=== PATIENT | male | born 1960 | race Two or more races ===

== ENCOUNTER 2023-10-31 11:40 | Inpatient (IN) | payer MEDICAID, OTHER ==
[~2023-10-31] VITALS: Ht 177.8 cm; Wt 83.2 kg
[~2023-10-31 11:40] MED LIST: ASPI81TA39 PO; CARV6 PO; CLOP75TA60 PO; DIVA-111 PO; GABA-531 PO; INSLAN SQ; INSU100C6 SQ; LISI-893 PO; LORA-1000 PO; METF-445 PO; MULT-1259 PO; NITR0.4T SL; NITR0.4T52 SL; PRAV40TA4 PO; QUET200T PO; ZOLP-162 PO; [UNRECOGNIZED DRUG - CODE]; [UNRECOGNIZED DRUG - CODE]
[2023-10-31 11:52] VITALS: O2SAT 99
[2023-10-31 12:19] LABS: COVID AG,FIA SOURCE NASAL SWAB
[2023-10-31 12:45] LABS: SARS-COV2 (COVID) ANTIGEN,FIA Negative (Negative)
[2023-10-31 13:02] LABS: BASOPHILS % (AUTO) 0.5 % (0.0-2.0); EOSINOPHILS % (AUTO) 2.4 % (1.0-6.0); HEMATOCRIT 36.9 % (41-53); HEMOGLOBIN 12.2 g/dL (13.5-17.5); LYMPHOCYTES # (AUTO) 2.3 K/uL (1.0-4.8); LYMPHOCYTES % (AUTO) 40.2 % (22.0-44.0); MEAN CORPUSCULAR HEMOGLOBIN 29.6 pg (26.0-34.0); MEAN CORPUSCULAR HGB CONC 33.1 G/dL (31.0-37.0); MEAN CORPUSCULAR VOLUME 90 fL (80-100); MONOCYTES # (AUTO) 0.5 K/uL (0.1-1.0); MONOCYTES % (AUTO) 9.6 % (2.0-9.0); NEUTROPHILS # (AUTO) 2.7 K/uL (1.8-7.7); NEUTROPHILS % (AUTO) 47.3 % (40.0-70.0); PLATELET COUNT (AUTO) 252 K/uL (150-450); RED BLOOD CELL COUNT(AUTO) 4.12 MIL/uL (4.50-5.90); RED CELL DISTRIBUTION WIDTH 13.7 % (11.5-14.5); WHITE BLOOD COUNT (AUTO) 5.7 K/uL (4.5-11.0)
[2023-10-31 13:10] LABS: ALCOHOL, URINE DRUG SCREEN NEGATIVE (NEGATIVE); AMPHET/METH SCREEN,URINE POSITIVE (NEGATIVE); BARBITURATE SCREEN, URINE NEGATIVE (NEGATIVE); BENZODIAZEPINES SCREEN,URINE NEGATIVE (NEGATIVE); CANNABINOID SCREEN,URINE POSITIVE (NEGATIVE); COCAINE SCREEN,URINE NEGATIVE (NEGATIVE); METHADONE SCREEN, URINE NEGATIVE (NEGATIVE); OPIATE SCREEN,URINE NEGATIVE (NEGATIVE); PHENCYCLIDINE SCREEN,URINE NEGATIVE (NEGATIVE)
[2023-10-31 13:12] LABS: PH,URINE DRUG SCREEN 6.5 (5.0-8.0)
[2023-10-31 13:17] LABS: ANION GAP 8 mmol/L (8-16); CALCIUM, TOTAL 8.7 mg/dL (8.8-10.5); CARBON DIOXIDE 26 mmol/L (22-29); CHLORIDE 100 mmol/L (98-107); CREATININE 1.35 mg/dL (0.60-1.30); GLOMERULAR FILTR. RATE CALC 54 mL/min (>60); GLUCOSE,RANDOM 207 mg/dL (70-110); POTASSIUM 4.4 mmol/L (3.5-5.1); SODIUM SERUM 134 mmol/L (136-145); UREA NITROGEN, BLOOD 27 mg/dL (7-18)
[2023-10-31 13:20] LABS: ALCOHOL, BLOOD (SERUM) < 3 mg/dL (0-10)
[2023-10-31 17:35] VITALS: BP 119/74; PULSE 86; RESP 18; TEMP 98.2
[2023-10-31] MEDS ORDERED: NITROGLYCERIN 0.4 MG SUBLINGUAL TABLET #25 SL PRN (18:30)
[2023-10-31] MEDS ORDERED: GLUCAGON,HUMAN RECOMBINANT 1 MG VIAL IM PRN (18:30)
[2023-10-31] MEDS ORDERED: PNEUMOCOCCAL VACCINE POLYVALENT 0.5 ML SYRINGE [PPSV23] IM. ONE (19:15)
[2023-10-31 20:21] LABS: GLUCOMETER DEV NAME(LOC) BV3N.2; GLUCOSE,POINT OF CARE 291 MG/DL (70-110)
[2023-10-31] MEDS: ZOLPIDEM TARTRATE 10 MG TABLET PO PRN (20:32)
[2023-10-31] MEDS: INSULIN LISPRO 100 UNITS/ML SQ PRN (20:38)
[2023-10-31 20:51] VITALS: BP 119/74; PULSE 86; RESP 18; TEMP 98.2; O2SAT 100
[2023-11-01 06:36] LABS: GLUCOMETER DEV NAME(LOC) BV3N.2; GLUCOSE,POINT OF CARE 270 MG/DL (70-110)
[2023-11-01] MEDS ORDERED: MAGNESIUM HYDROXIDE SUSPENSION 30 ML UDCUP PO PRN (08:00)
[2023-11-01] MEDS ORDERED: NICOTINE 14 MG/24 HOUR PATCH TD PRN (08:00)
[2023-11-01] MEDS ORDERED: ONDANSETRON 4 MG TABLET PO PRN (08:00)
[2023-11-01] MEDS ORDERED: LOPERAMIDE HCL 2 MG CAPSULE PO PRN (08:00)
[2023-11-01] MEDS ORDERED: CloNIDine HCL 0.1 MG TABLET PO PRN (08:00)
[2023-11-01] MEDS ORDERED: MAG HYDROX/ALUMINUM HYD/SIMETH ES 30 ML SUSPENSION UDCUP PO PRN (08:00)
[2023-11-01] MEDS ORDERED: DOCUSATE SODIUM 100 MG CAPSULE PO PRN (08:00)
[2023-11-01] MEDS ORDERED: ALBUTEROL SULFATE HFA 90 MCG/PUFF 8 GM INHALER IH PRN (08:00)
[2023-11-01] MEDS ORDERED: PETROLATUM,WHITE 28 GM JELLY TP PRN (08:00)
[2023-11-01 08:26] VITALS: BP 114/60; PULSE 84; RESP 17; TEMP 98; O2SAT 98
[2023-11-01] MEDS: PRAVASTATIN SODIUM 40 MG TABLET PO SCH (08:43)
[2023-11-01] MEDS: GABAPENTIN 300 MG CAPSULE PO SCH (08:43)
[2023-11-01] MEDS: LISINOPRIL 10 MG TABLET PO SCH (08:43)
[2023-11-01] MEDS: CARVEDILOL 6.25 MG TABLET PO SCH (08:43)
[2023-11-01] MEDS: ASPIRIN 81 MG CHEWABLE TABLET PO SCH (08:43)
[2023-11-01] MEDS: CLOPIDOGREL BISULFATE 75 MG TABLET PO SCH (08:43)
[2023-11-01] MEDS: NICOTINE 14 MG/24 HOUR PATCH TD SCH (08:44)
[2023-11-01] MEDS: LORazepam 2 MG TABLET PO PRN (08:44)
[2023-11-01 09:44] LABS: APPEARANCE,URINE CLEAR (CLEAR); BILIRUBIN,URINE NEGATIVE (NEGATIVE); COLOR,URINE LIGHT YELLOW (YELLOW); GLUCOSE, URINE (UA) >=1000 mg/dL (NEGATIVE); KETONES,URINE NEGATIVE (NEGATIVE); LEUKOCYTE ESTERASE ,URINE NEGATIVE (NEGATIVE); NITRATE,URINE NEGATIVE (NEGATIVE); OCCULT BLOOD,URINE NEGATIVE (NEGATIVE); PH,URINE 6.5 (5.0-8.0); PROTEIN,URINE 30-70 mg/dL (NEGATIVE); SPECIFIC GRAVITIY, URINE 1.014 (1.003-1.030); UROBILINOGEN,URINE <=1.0 mg/dL (<=1.0)
[2023-11-01 09:59] LABS: BACTERIA,URINE None Seen /HPF (None Seen); RBC,URINE None Seen /HPF (0-2); SQUAMOUS EPITHELIAL CELL,UR None Seen /LPF (None Seen); WBC,URINE None Seen /HPF (0-5)
[2023-11-01] MEDS: DIVALPROEX SODIUM 250 MG DR TABLET PO SCH (10:58)
[2023-11-01] MEDS: HALOPERIDOL 5 MG TABLET PO PRN (16:37)
[2023-11-01 16:41] LABS: GLUCOMETER DEV NAME(LOC) BV3N.2; GLUCOSE,POINT OF CARE 279 MG/DL (70-110)
[2023-11-01] MEDS: QUEtiapine FUMARATE 200 MG TABLET PO SCH (20:06)
[2023-11-01 20:18] VITALS: BP 111/70; PULSE 82; RESP 17; TEMP 98; O2SAT 98
[2023-11-02 06:51] LABS: GLUCOMETER DEV NAME(LOC) BV3N.2; GLUCOSE,POINT OF CARE 363 MG/DL (70-110)
[2023-11-02 08:23] VITALS: BP 124/64; PULSE 73; RESP 16; TEMP 97.3; O2SAT 98
[2023-11-02 08:24] LABS: CHOL/HDL RATIO 4.4 (4.2-7.3); THYROID STIMULATING HORMONE 1.43 uIU/mL (0.36-3.74)
[2023-11-02 08:38] LABS: HEMOGLOBIN A1C 10.1 % (3.8-5.6)
[2023-11-02 11:55] LABS: GLUCOMETER DEV NAME(LOC) BV3N.2; GLUCOSE,POINT OF CARE 363 MG/DL (70-110)
[2023-11-02 16:46] LABS: GLUCOMETER DEV NAME(LOC) BV3N.2; GLUCOSE,POINT OF CARE 146 MG/DL (70-110)
[2023-11-02 20:44] VITALS: BP 97/54; PULSE 93; RESP 18; TEMP 97.5; O2SAT 100
[2023-11-02 21:20] LABS: GLUCOMETER DEV NAME(LOC) BV3N.2; GLUCOSE,POINT OF CARE 353 MG/DL (70-110)
[2023-11-03 06:36] LABS: GLUCOMETER DEV NAME(LOC) BV3N.2; GLUCOSE,POINT OF CARE 409 MG/DL (70-110)
[2023-11-03 08:22] VITALS: BP 128/76; PULSE 108; RESP 17; TEMP 97.7; O2SAT 98
[2023-11-03 17:00] LABS: GLUCOMETER DEV NAME(LOC) BV3N.2; GLUCOSE,POINT OF CARE 477 MG/DL (70-110)
[2023-11-03] MEDS ORDERED: DIVA-112 PO (17:58)
[2023-11-03] MEDS ORDERED: AMLO5TAB66 PO (17:58)
[2023-11-03] MEDS ORDERED: CARV12.530 PO (17:58)
[2023-11-03] MEDS ORDERED: LORA10TA7 PO (17:58)
[2023-11-03] MEDS ORDERED: MONT-40 PO (17:58)
[2023-11-03] MEDS ORDERED: FLUT16SP NASAL (17:58)
[2023-11-03] MEDS ORDERED: LISI20TA24 PO (17:58)
[2023-11-03] MEDS ORDERED: OMEP20CA12 PO (17:58)
[2023-11-03] MEDS ORDERED: INSU100I26 SQ (17:58)
[2023-11-03] MEDS ORDERED: FINE10TA PO (17:58)
[2023-11-03] MEDS ORDERED: ASPI-1444 PO (17:58)
[2023-11-03] MEDS ORDERED: QUET100T34 PO (17:58)
[2023-11-03] MEDS ORDERED: DULA0.75 SQ (17:58)
[2023-11-03] MEDS ORDERED: FERR325T23 PO (17:58)
[2023-11-03] MEDS ORDERED: CLOP75TA32 PO (17:58)
[2023-11-03] MEDS ORDERED: GABA-1181 PO (17:58)
[2023-11-03] MEDS: INSULIN LISPRO 100 UNITS/ML SQ ONE (18:47)
[2023-11-03 20:50] VITALS: BP 102/68; PULSE 104; RESP 18; TEMP 97.8; O2SAT 98
[2023-11-03 21:01] LABS: GLUCOMETER DEV NAME(LOC) BV3N.2; GLUCOSE,POINT OF CARE 338 MG/DL (70-110)
[2023-11-04] MEDS: GlipiZIDE 5 MG TABLET PO SCH (06:47)
[2023-11-04 07:05] LABS: GLUCOMETER DEV NAME(LOC) BV3N.2; GLUCOSE,POINT OF CARE 302 MG/DL (70-110)
[2023-11-04] MEDS: INSULIN LISPRO 100 UNITS/ML SQ ONE (12:07)
[2023-11-04 12:25] LABS: GLUCOMETER DEV NAME(LOC) BV3N.2; GLUCOSE,POINT OF CARE 430 MG/DL (70-110)
[2023-11-04 14:48] VITALS: BP 132/68; PULSE 100; RESP 20; TEMP 98.2; O2SAT 96
[2023-11-04 14:58] VITALS: BP 140/88; PULSE 99; RESP 19; TEMP 97.5; O2SAT 99
[2023-11-04 16:10] LABS: GLUCOMETER DEV NAME(LOC) BV3N.2; GLUCOSE,POINT OF CARE 265 MG/DL (70-110)
[2023-11-04 20:19] VITALS: BP 127/66; PULSE 92; RESP 18; TEMP 97.7; O2SAT 100
[2023-11-05 06:15] LABS: GLUCOMETER DEV NAME(LOC) BV3N.2; GLUCOSE,POINT OF CARE 259 MG/DL (70-110)
[2023-11-05 06:15] LABS: GLUCOMETER DEV NAME(LOC) BV3N.2; GLUCOSE,POINT OF CARE 318 MG/DL (70-110)
[2023-11-05 08:35] VITALS: BP 123/69; PULSE 100; RESP 17; TEMP 97.3; O2SAT 98
[2023-11-05 08:43] LABS: CALCIUM, TOTAL 8.5 mg/dL (8.8-10.5); CREATININE 1.25 mg/dL (0.60-1.30); POTASSIUM 4.7 mmol/L (3.5-5.1)
[2023-11-05] MEDS: DiphenhydrAMINE HCL 50 MG/ML VIAL IM ONE (10:26)
[2023-11-05] MEDS: HALOPERIDOL LACTATE 5 MG/ML VIAL IM ONE (10:26)
[2023-11-05] MEDS: LORazepam 2 MG/ML VIAL IM ONE (10:26)
[2023-11-05 11:26] VITALS: BP 118/70; PULSE 86; RESP 17; TEMP 97.8; O2SAT 99
[2023-11-05 12:20] LABS: GLUCOMETER DEV NAME(LOC) BV3N.2; GLUCOSE,POINT OF CARE 335 MG/DL (70-110)
[2023-11-05 16:32] LABS: GLUCOMETER DEV NAME(LOC) BV3N.2; GLUCOSE,POINT OF CARE 469 MG/DL (70-110)
[2023-11-05] MEDS: INSULIN LISPRO 100 UNITS/ML SQ ONE (16:32)
[2023-11-05 20:30] VITALS: BP 129/81; PULSE 87; RESP 18; TEMP 97.7
[2023-11-05 20:45] LABS: GLUCOMETER DEV NAME(LOC) BV3N.2; GLUCOSE,POINT OF CARE 398 MG/DL (70-110)
[2023-11-05] MEDS: SitaGLIPtin PHOSPHATE 50 MG TABLET PO SCH (21:52)
[2023-11-06 07:01] LABS: GLUCOMETER DEV NAME(LOC) BV3N.2; GLUCOSE,POINT OF CARE 252 MG/DL (70-110)
[2023-11-06 08:57] VITALS: BP 148/76; PULSE 81; RESP 18; TEMP 98.2; O2SAT 99
[2023-11-06 13:51] LABS: GLUCOMETER DEV NAME(LOC) BV3N.2; GLUCOSE,POINT OF CARE 309 MG/DL (70-110)
[2023-11-06] MEDS: DiphenhydrAMINE HCL 50 MG/ML VIAL IM ONE (16:37)
[2023-11-06] MEDS: LORazepam 2 MG/ML VIAL IM ONE (16:38)
[2023-11-06] MEDS: HALOPERIDOL LACTATE 5 MG/ML VIAL IM ONE (16:39)
[2023-11-06] MEDS: QUEtiapine FUMARATE 200 MG TABLET PO SCH (21:01)
[2023-11-07 06:36] LABS: GLUCOMETER DEV NAME(LOC) BV3N.2; GLUCOSE,POINT OF CARE 374 MG/DL (70-110)
[2023-11-07 08:58] VITALS: BP 125/77; PULSE 90; RESP 18; TEMP 97.7; O2SAT 98
[2023-11-07] MEDS: INSULIN LISPRO 100 UNITS/ML SQ ONE ×2 (11:52→16:26)
[2023-11-07 13:27] LABS: GLUCOMETER DEV NAME(LOC) BV3N.2; GLUCOSE,POINT OF CARE 437 MG/DL (70-110)
[2023-11-07 16:46] LABS: GLUCOMETER DEV NAME(LOC) BV3N.2; GLUCOSE,POINT OF CARE 415 MG/DL (70-110)
[2023-11-07 17:45] LABS: GLUCOMETER DEV NAME(LOC) BV3N.2; GLUCOSE,POINT OF CARE 449 MG/DL (70-110)
[2023-11-07] MEDS: INSULIN GLARGINE,HUM.REC.ANLOG 100 UNITS/ML SQ SCH (21:20)
[2023-11-07 22:30] LABS: GLUCOMETER DEV NAME(LOC) BV3N.2; GLUCOSE,POINT OF CARE 254 MG/DL (70-110)
[2023-11-08 00:10] VITALS: RESP 18
[2023-11-08 06:26] LABS: GLUCOMETER DEV NAME(LOC) BV3N.2; GLUCOSE,POINT OF CARE 349 MG/DL (70-110)
[2023-11-08 08:31] VITALS: BP 113/64; PULSE 96; RESP 16; TEMP 97.8; O2SAT 98
[2023-11-08] MEDS: INSULIN LISPRO 100 UNITS/ML SQ PRN (11:30)
[2023-11-08] MEDS: INSULIN GLARGINE,HUM.REC.ANLOG 100 UNITS/ML SQ SCH (16:33)
[2023-11-08] MEDS ORDERED: INSULIN GLARGINE,HUM.REC.ANLOG 100 UNITS/ML SQ SCH (17:00)
[2023-11-08 20:30] VITALS: BP 136/92; PULSE 99; RESP 18; TEMP 97; O2SAT 97
[2023-11-08 20:41] LABS: GLUCOMETER DEV NAME(LOC) BV3N.2; GLUCOSE,POINT OF CARE 269 MG/DL (70-110)
[2023-11-09 08:33] VITALS: RESP 17
[2023-11-09 10:31] LABS: GLUCOMETER DEV NAME(LOC) BV3N.2; GLUCOSE,POINT OF CARE 391 MG/DL (70-110)
[2023-11-09 11:40] LABS: GLUCOMETER DEV NAME(LOC) BV3N.2; GLUCOSE,POINT OF CARE 381 MG/DL (70-110)
[2023-11-09 17:15] LABS: GLUCOMETER DEV NAME(LOC) BV3N.2; GLUCOSE,POINT OF CARE 322 MG/DL (70-110)
[2023-11-09 20:35] VITALS: BP 130/80; PULSE 93; RESP 18; TEMP 97.5; O2SAT 100
[2023-11-09 20:45] LABS: GLUCOMETER DEV NAME(LOC) BV3N.2; GLUCOSE,POINT OF CARE 291 MG/DL (70-110)
[2023-11-10] MEDS: INSULIN GLARGINE,HUM.REC.ANLOG 100 UNITS/ML SQ SCH (09:00)
[2023-11-10] MEDS: INSULIN LISPRO 100 UNITS/ML SQ ONE (12:38)
[2023-11-10 16:45] LABS: GLUCOMETER DEV NAME(LOC) BV3N.2; GLUCOSE,POINT OF CARE 511 MG/DL (70-110)
[2023-11-10 16:45] LABS: GLUCOMETER DEV NAME(LOC) BV3N.2; GLUCOSE,POINT OF CARE 305 MG/DL (70-110)
[2023-11-10 20:23] VITALS: BP 107/64; PULSE 108; RESP 19; TEMP 96.9; O2SAT 99
[2023-11-10] MEDS: DIVALPROEX SODIUM 250 MG DR TABLET PO SCH (20:32)
[2023-11-10 21:05] LABS: GLUCOMETER DEV NAME(LOC) BV3N.2; GLUCOSE,POINT OF CARE 228 MG/DL (70-110)
[2023-11-11 06:11] LABS: GLUCOMETER DEV NAME(LOC) BV3N.2; GLUCOSE,POINT OF CARE 253 MG/DL (70-110)
[2023-11-11 08:36] VITALS: BP 140/86; PULSE 87; RESP 15; TEMP 98.3; O2SAT 98
[2023-11-11 11:55] LABS: GLUCOMETER DEV NAME(LOC) BV3N.2; GLUCOSE,POINT OF CARE 331 MG/DL (70-110)
[2023-11-11 17:05] LABS: GLUCOMETER DEV NAME(LOC) BV3N.2; GLUCOSE,POINT OF CARE 197 MG/DL (70-110)
[2023-11-11 20:51] VITALS: BP 96/64; PULSE 88; RESP 18; TEMP 97.3; O2SAT 95
[2023-11-11 21:31] LABS: GLUCOMETER DEV NAME(LOC) BV3N.2; GLUCOSE,POINT OF CARE 273 MG/DL (70-110)
[2023-11-12 06:26] LABS: GLUCOMETER DEV NAME(LOC) BV3N.2; GLUCOSE,POINT OF CARE 200 MG/DL (70-110)
[2023-11-12 08:29] VITALS: BP 114/73; PULSE 95; RESP 18; TEMP 97.8; O2SAT 98
[2023-11-12] MEDS: GuaiFENesin/D-METHORPHAN [SUGAR-FREE] 200-20MG/10 ML SYRUP UDCUP PO PRN (08:40)
[2023-11-12 12:01] LABS: GLUCOMETER DEV NAME(LOC) BV3N.2; GLUCOSE,POINT OF CARE 313 MG/DL (70-110)
[2023-11-12 16:55] LABS: GLUCOMETER DEV NAME(LOC) BV3N.2; GLUCOSE,POINT OF CARE 319 MG/DL (70-110)
[2023-11-12 20:32] VITALS: BP 100/59; PULSE 87; RESP 18; TEMP 97.5; O2SAT 99
[2023-11-13 06:21] LABS: GLUCOMETER DEV NAME(LOC) BV3N.2; GLUCOSE,POINT OF CARE 248 MG/DL (70-110)
[2023-11-13 08:26] VITALS: BP 133/85; PULSE 86; RESP 16; TEMP 97.8; O2SAT 97
[2023-11-13] MEDS: INSULIN GLARGINE,HUM.REC.ANLOG 100 UNITS/ML SQ SCH (09:02)
[2023-11-13 11:55] LABS: GLUCOMETER DEV NAME(LOC) BV3N.2; GLUCOSE,POINT OF CARE 333 MG/DL (70-110)
[2023-11-13 18:00] LABS: GLUCOMETER DEV NAME(LOC) BV3N.2; GLUCOSE,POINT OF CARE 194 MG/DL (70-110)
[2023-11-13 20:19] VITALS: BP 119/68; PULSE 76; RESP 18; TEMP 98.4; O2SAT 97
[2023-11-13 20:35] LABS: GLUCOMETER DEV NAME(LOC) BV3N.2; GLUCOSE,POINT OF CARE 256 MG/DL (70-110)
[2023-11-14 06:50] LABS: GLUCOMETER DEV NAME(LOC) BV3N.2; GLUCOSE,POINT OF CARE 165 MG/DL (70-110)
[2023-11-14 08:15] VITALS: BP 150/89; PULSE 94; RESP 18; TEMP 97.8; O2SAT 99
[2023-11-14 11:56] LABS: GLUCOMETER DEV NAME(LOC) BV3N.2; GLUCOSE,POINT OF CARE 280 MG/DL (70-110)
[2023-11-14 17:00] LABS: GLUCOMETER DEV NAME(LOC) BV3N.2; GLUCOSE,POINT OF CARE 364 MG/DL (70-110)
[2023-11-14 20:56] LABS: GLUCOMETER DEV NAME(LOC) BV3N.2; GLUCOSE,POINT OF CARE 240 MG/DL (70-110)
[2023-11-14 20:59] VITALS: BP 142/88; PULSE 98; RESP 18; TEMP 99; O2SAT 99
[2023-11-15 06:15] LABS: GLUCOMETER DEV NAME(LOC) BV3N.2; GLUCOSE,POINT OF CARE 201 MG/DL (70-110)
[2023-11-15 08:23] VITALS: BP 121/81; PULSE 96; RESP 16; TEMP 97.3; O2SAT 95
[2023-11-15 11:36] LABS: GLUCOMETER DEV NAME(LOC) BV3N.2; GLUCOSE,POINT OF CARE 251 MG/DL (70-110)
[2023-11-15 17:20] LABS: GLUCOMETER DEV NAME(LOC) BV3N.2; GLUCOSE,POINT OF CARE 272 MG/DL (70-110)
[2023-11-15 20:36] LABS: GLUCOMETER DEV NAME(LOC) BV3N.2; GLUCOSE,POINT OF CARE 306 MG/DL (70-110)
[2023-11-15 20:57] VITALS: RESP 18
[2023-11-16 06:46] LABS: GLUCOMETER DEV NAME(LOC) BV3N.2; GLUCOSE,POINT OF CARE 209 MG/DL (70-110)
[2023-11-16 08:10] VITALS: RESP 18
[2023-11-16 08:28] VITALS: BP 136/81; PULSE 86; RESP 18; TEMP 98.1; O2SAT 98
[2023-11-16 11:50] LABS: GLUCOMETER DEV NAME(LOC) BV3N.2; GLUCOSE,POINT OF CARE 248 MG/DL (70-110)
[2023-11-16 16:46] LABS: GLUCOMETER DEV NAME(LOC) BV3N.2; GLUCOSE,POINT OF CARE 207 MG/DL (70-110)
[2023-11-16 20:16] VITALS: BP 125/67; PULSE 100; RESP 18; TEMP 97.5; O2SAT 98
[2023-11-16 20:30] LABS: GLUCOMETER DEV NAME(LOC) BV3N.2; GLUCOSE,POINT OF CARE 204 MG/DL (70-110)
[2023-11-17 06:25] LABS: GLUCOMETER DEV NAME(LOC) BV3N.2; GLUCOSE,POINT OF CARE 153 MG/DL (70-110)
[2023-11-17] MEDS ORDERED: ZOLPIDEM TARTRATE 10 MG TABLET PO PRN (07:00)
[2023-11-17 08:27] VITALS: BP 138/84; PULSE 90; RESP 18; TEMP 98; O2SAT 97
[2023-11-17 12:00] LABS: GLUCOMETER DEV NAME(LOC) BV3N.2; GLUCOSE,POINT OF CARE 216 MG/DL (70-110)
[2023-11-17] MEDS: LORazepam 2 MG TABLET PO PRN (13:39)
[2023-11-17 16:40] LABS: GLUCOMETER DEV NAME(LOC) BV3N.2; GLUCOSE,POINT OF CARE 145 MG/DL (70-110)
[2023-11-18] VITALS (9 sets, daily range): BP systolic 76–152; BP diastolic 48–73; PULSE 84–105; RESP 16–18; TEMP 97.3–97.7; O2SAT 91–100
[2023-11-18 06:26] LABS: GLUCOMETER DEV NAME(LOC) BV3N.2; GLUCOSE,POINT OF CARE 193 MG/DL (70-110)
[2023-11-18 12:06] LABS: GLUCOMETER DEV NAME(LOC) BV3N.2; GLUCOSE,POINT OF CARE 360 MG/DL (70-110)
[2023-11-18 23:36] LABS: GLUCOMETER DEV NAME(LOC) ERT.6; GLUCOSE,POINT OF CARE 165 MG/DL (70-110)
[2023-11-19 02:05] VITALS: BP 134/83; PULSE 71; RESP 18; TEMP 97.8
[2023-11-19 08:51] VITALS: BP 137/70; PULSE 90; RESP 17; TEMP 98; O2SAT 99
[2023-11-19 09:11] LABS: GLUCOMETER DEV NAME(LOC) BV2S.; GLUCOSE,POINT OF CARE 231 MG/DL (70-110)
[2023-11-19 20:29] VITALS: BP 134/72; PULSE 89; RESP 16; TEMP 97.8; O2SAT 100
[2023-11-20 04:36] LABS: GLUCOMETER DEV NAME(LOC) BV2S.; GLUCOSE,POINT OF CARE 298 MG/DL (70-110)
[2023-11-20 04:36] LABS: GLUCOMETER DEV NAME(LOC) BV2S.; GLUCOSE,POINT OF CARE 143 MG/DL (70-110)
[2023-11-20 08:25] VITALS: BP 108/71; PULSE 94; RESP 16; TEMP 97.3; O2SAT 98
[2023-11-20 08:51] LABS: GLUCOMETER DEV NAME(LOC) BV2S.; GLUCOSE,POINT OF CARE 270 MG/DL (70-110)
[2023-11-20 09:00] VITALS: BP 133/88; PULSE 93; RESP 18; TEMP 97.7; O2SAT 98
[2023-11-20] MEDS: GLUCAGON,HUMAN RECOMBINANT 1 MG VIAL IM PRN (11:14)
[2023-11-20 17:40] LABS: GLUCOMETER DEV NAME(LOC) BV2S.; GLUCOSE,POINT OF CARE 292 MG/DL (70-110)
[2023-11-20 17:40] LABS: GLUCOMETER DEV NAME(LOC) BV2S.; GLUCOSE,POINT OF CARE 181 MG/DL (70-110)
[2023-11-20] MEDS: QUEtiapine FUMARATE 200 MG TABLET PO SCH (20:21)
[2023-11-20] MEDS: DIVALPROEX SODIUM 500 MG DR TABLET PO SCH (20:22)
[2023-11-20 20:50] LABS: GLUCOMETER DEV NAME(LOC) BV2S.; GLUCOSE,POINT OF CARE 163 MG/DL (70-110)
[2023-11-20 21:00] VITALS: BP 133/88; PULSE 93; RESP 18; TEMP 97.1; O2SAT 98
[2023-11-21 07:16] LABS: GLUCOMETER DEV NAME(LOC) BV2S.; GLUCOSE,POINT OF CARE 199 MG/DL (70-110)
[2023-11-21 15:02] VITALS: RESP 17
[2023-11-21 17:01] LABS: GLUCOMETER DEV NAME(LOC) BV2S.; GLUCOSE,POINT OF CARE 299 MG/DL (70-110)
[2023-11-21 21:41] VITALS: BP 148/89; PULSE 100; RESP 18; TEMP 97.6; O2SAT 98
[2023-11-22 06:35] LABS: GLUCOMETER DEV NAME(LOC) BV2S.; GLUCOSE,POINT OF CARE 122 MG/DL (70-110)
[2023-11-22 08:16] VITALS: RESP 18
[2023-11-22 11:51] LABS: GLUCOMETER DEV NAME(LOC) BV2S.; GLUCOSE,POINT OF CARE 392 MG/DL (70-110)
[2023-11-22 17:15] VITALS: BP 134/70; PULSE 105; RESP 16
[2023-11-22] MEDS ORDERED: PEG 400/HYPROMELLOSE/GLYCERIN 15 ML OPHTHALMIC SOLUTION OU PRN (17:30)
[2023-11-22 18:21] LABS: GLUCOMETER DEV NAME(LOC) BV2S.; GLUCOSE,POINT OF CARE 152 MG/DL (70-110)
[2023-11-22 18:58] VITALS: RESP 18
[2023-11-22] MEDS: ACETAMINOPHEN 325 MG TABLET PO PRN (18:58)
[2023-11-22 20:15] VITALS: BP 110/72; PULSE 99; RESP 18; TEMP 97.7; O2SAT 97
[2023-11-23 08:16] VITALS: BP 133/76; PULSE 92; RESP 18; TEMP 98; O2SAT 98
[2023-11-23] MEDS: LISINOPRIL 5 MG TABLET PO SCH (09:15)
[2023-11-23] MEDS: GABAPENTIN 300 MG CAPSULE PO SCH (09:15)
[2023-11-23] MEDS: CARVEDILOL 3.125 MG TABLET PO SCH (09:16)
[2023-11-23 20:55] VITALS: BP 96/63; PULSE 99; RESP 18; TEMP 97.1; O2SAT 98
[2023-11-24 04:46] LABS: GLUCOMETER DEV NAME(LOC) BV2S.; GLUCOSE,POINT OF CARE 376 MG/DL (70-110)
[2023-11-24 04:46] LABS: GLUCOMETER DEV NAME(LOC) BV2S.; GLUCOSE,POINT OF CARE 157 MG/DL (70-110)
[2023-11-24 08:14] VITALS: BP 137/77; PULSE 92; RESP 18; TEMP 96.8; O2SAT 100
[2023-11-24 08:25] LABS: BASOPHILS % (AUTO) 0.5 % (0.0-2.0); EOSINOPHILS % (AUTO) 5.5 % (1.0-6.0); HEMATOCRIT 29.4 % (41-53); LYMPHOCYTES # (AUTO) 2.9 K/uL (1.0-4.8); LYMPHOCYTES % (AUTO) 47.1 % (22.0-44.0); MEAN CORPUSCULAR HEMOGLOBIN 30.2 pg (26.0-34.0); MEAN CORPUSCULAR VOLUME 89 fL (80-100); MONOCYTES # (AUTO) 0.6 K/uL (0.1-1.0); MONOCYTES % (AUTO) 10.1 % (2.0-9.0); NEUTROPHILS # (AUTO) 2.3 K/uL (1.8-7.7); NEUTROPHILS % (AUTO) 36.8 % (40.0-70.0); PLATELET COUNT (AUTO) 282 K/uL (150-450); RED BLOOD CELL COUNT(AUTO) 3.31 MIL/uL (4.50-5.90); RED CELL DISTRIBUTION WIDTH 13.5 % (11.5-14.5); WHITE BLOOD COUNT (AUTO) 6.2 K/uL (4.5-11.0)
[2023-11-24 08:36] LABS: CALCIUM, TOTAL 8.4 mg/dL (8.8-10.5); CREATININE 1.22 mg/dL (0.60-1.30); POTASSIUM 4.9 mmol/L (3.5-5.1)
[2023-11-24 09:45] LABS: GLUCOMETER DEV NAME(LOC) BV2S.; GLUCOSE,POINT OF CARE 359 MG/DL (70-110)
[2023-11-24] MEDS: INSULIN GLARGINE,HUM.REC.ANLOG 100 UNITS/ML SQ ONE (10:45)
[2023-11-24 11:35] LABS: GLUCOMETER DEV NAME(LOC) BV2S.; GLUCOSE,POINT OF CARE 304 MG/DL (70-110)
[2023-11-24 16:21] LABS: GLUCOMETER DEV NAME(LOC) BV2S.; GLUCOSE,POINT OF CARE 198 MG/DL (70-110)
[2023-11-24] MEDS: INSULIN GLARGINE,HUM.REC.ANLOG 100 UNITS/ML SQ SCH (16:28)
== END 2023-11-24 20:00 | disposition home or self-care (01) | DRG 753 ==
LOC: EMS 11:40 → B3A 15:01 → B2S 11-18 21:09
PROVIDERS: ADMIT Psychiatry & Neurology Psychiatry; ATTEND Psychiatry & Neurology Psychiatry
PROC: GZHZZZZ Group Psychotherapy (ICD-10-PCS; principal; 2023-11-01)
PROC: GZ52ZZZ Individual Psychotherapy, Cognitive (ICD-10-PCS; 2023-11-07)
DX: F31.4 Bipolar disorder, current episode depressed, severe, without psychotic features (principal); R45.851 Suicidal ideations; E11.22 Type 2 diabetes mellitus with diabetic chronic kidney disease; E11.65 Type 2 diabetes mellitus with hyperglycemia; N18.9 Chronic kidney disease, unspecified; I25.10 Atherosclerotic heart disease of native coronary artery without angina pectoris; I12.9 Hypertensive chronic kidney disease with stage 1 through stage 4 chronic kidney disease, or unspecified chronic kidney disease; E78.00 Pure hypercholesterolemia, unspecified; F15.10 Other stimulant abuse, uncomplicated; F12.10 Cannabis abuse, uncomplicated; F17.210 Nicotine dependence, cigarettes, uncomplicated; F41.9 Anxiety disorder, unspecified; Z53.20 Procedure and treatment not carried out because of patient's decision for unspecified reasons; Z59.00 Homelessness unspecified; Z79.899 Other long term (current) drug therapy; Z79.82 Long term (current) use of aspirin; Z79.02 Long term (current) use of antithrombotics/antiplatelets
CPT/HCPCS: 80048; 80061; 80164; 80307; 81001; 82962; 83036; 84443; 85025; 86592; 87340; 99285; G0480; J1200; J1630; J1815; J2060

== ENCOUNTER → 2023-11-17 | Emergency (ER) | payer MEDICAID, OTHER ==
[~2023-11-17] MED LIST changes: +AMLO5TAB66 PO; +ASPI-1444 PO; -ASPI81TA39 PO; +CARV12.530 PO; -CARV6 PO; +CLOP75TA32 PO; -CLOP75TA60 PO; -DIVA-111 PO; +DIVA-112 PO; +DULA0.75 SQ; +FERR325T23 PO; +FINE10TA PO; +FLUT16SP NASAL; +GABA-1181 PO; -GABA-531 PO; -INSLAN SQ; -INSU100C6 SQ; +INSU100I26 SQ; -LISI-893 PO; +LISI20TA24 PO; -LORA-1000 PO; +LORA10TA7 PO; -METF-445 PO; +MONT-40 PO; -NITR0.4T SL; +OMEP20CA12 PO; -PRAV40TA4 PO; +QUET100T34 PO; -ZOLP-162 PO; -[UNRECOGNIZED DRUG - CODE]; -[UNRECOGNIZED DRUG - CODE]
[2023-11-18 02:23] VITALS: BP 144/100; PULSE 80; RESP 20; O2SAT 95
== END | disposition admitted as inpatient to this hospital (09) ==
LOC: EMS 17:40
DX: S02.2XXA Fracture of nasal bones, initial encounter for closed fracture (principal); E11.9 Type 2 diabetes mellitus without complications; I10 Essential (primary) hypertension; F17.210 Nicotine dependence, cigarettes, uncomplicated; F12.90 Cannabis use, unspecified, uncomplicated; F15.10 Other stimulant abuse, uncomplicated; Z79.4 Long term (current) use of insulin; W22.8XXA Striking against or struck by other objects, initial encounter; Y93.89 Activity, other specified; Y92.89 Other specified places as the place of occurrence of the external cause; Y99.8 Other external cause status
CPT/HCPCS: 70450; 70486; 99285

== ENCOUNTER 2023-11-18 20:35 | Emergency (ER) | payer OTHER ==
[~2023-11-18] VITALS: Ht 182.9 cm; Wt 77.3 kg
[2023-11-18 20:51] VITALS: TEMP 98.9
[2023-11-19 01:38] VITALS: BP 136/72; PULSE 91; RESP 18; O2SAT 96
== END 2023-11-19 01:38 | disposition admitted as inpatient to this hospital (09) ==
LOC: EMS 20:35
DX: E11.65 Type 2 diabetes mellitus with hyperglycemia (principal); F31.9 Bipolar disorder, unspecified; I10 Essential (primary) hypertension; F17.210 Nicotine dependence, cigarettes, uncomplicated; F15.10 Other stimulant abuse, uncomplicated; F12.90 Cannabis use, unspecified, uncomplicated; Z91.198 Patient's noncompliance with other medical treatment and regimen for other reason; Z79.4 Long term (current) use of insulin
CPT/HCPCS: 99283; 99285